=== PATIENT | male | born 1980 | race Two or more races ===

== ENCOUNTER 2016-08-09 23:13 | Emergency (ER) | payer SELFPAY ==
[~2016-08-09] VITALS: Ht 152.4 cm; Wt 79.4 kg
[2016-08-10] MEDS ORDERED: IV SET PRIMARY 1 EA INFUS.SET MC ONE (00:15)
[2016-08-10] MEDS ORDERED: ONDANSETRON HCL/PF 4 MG/2 ML VIAL ONE (00:15)
[2016-08-10] MEDS ORDERED: IV NS 0.9% 1,000 ML ONE (00:16)
[2016-08-10 00:20] LABS: BASOPHILS % (AUTO) 0.3 % (0.0-2.0); DIFF TOTAL % 100 %; EOSINOPHILS # (AUTO) 0.1 /CMM (0.0-0.7); EOSINOPHILS % (AUTO) 1.4 % (0.0-6.0); HEMATOCRIT 45 % (39-51); HEMOGLOBIN 14.8 g/dL (13.5-17.5); LYMPHOCYTES # (AUTO) 1.2 /CMM (0.8-4.8); LYMPHOCYTES % (AUTO) 13.8 % (20.0-44.0); MEAN CORPUSCULAR HEMOGLOBIN 31 PG (26.0-33.0); MEAN CORPUSCULAR HGB CONC 33 g/dl (31.0-36.0); MEAN CORPUSCULAR VOLUME 94 fL (80-96); MONOCYTES # (AUTO) 0.5 /CMM (0.1-1.30); MONOCYTES % (AUTO) 5.4 % (2.0-12.0); NEUTROPHILS % (AUTO) 79.1 % (43.0-81.0); PLATELET COUNT (AUTO) 317 /CMM (150-450); WHITE BLOOD COUNT (AUTO) 8.9 K/uL (4.3-11.0)
[2016-08-10] MEDS ORDERED: ONDANSETRON HCL/PF 4 MG/2 ML VIAL IV ONE (00:30)
[2016-08-10 00:34] LABS: ANION GAP 11 (5-14); CALCIUM, SERUM 8.9 mg/dL (8.5-10.1); CARBON DIOXIDE 28 mmol/L (21-32); CHLORIDE 109 mmol/L (98-107); CREATININE 0.9 mg/dL (0.6-1.3); GFR 95 mL/min (>60); GLUCOSE 150 mg/dL (74-106); POTASSIUM 3.6 mmol/L (3.5-5.1); SODIUM SERUM 145 mmol/L (136-145); UREA NITROGEN, BLOOD 11 mg/dL (7-18)
[2016-08-10 00:36] LABS: INR 0.93 (0.87-1.13)
[2016-08-10 00:42] LABS: ALANINE AMINOTRANSFERASE 24 U/L (12-78); ALBUMIN 3.7 g/dL (3.4-5.0); ASPARTATE AMINOTRANSFERASE 19 U/L (15-37); BILIRUBIN,DIRECT 0.1 mg/dL (0.0-0.2); BILIRUBIN,TOTAL 0.3 mg/dL (0.2-1.0); INDIRECT BILIRUBIN 0.2 mg/dL (0.0-1.1); TOTAL PROTEIN, SERUM 6.6 g/dL (6.4-8.2)
[2016-08-10 00:44] LABS: SALICYLATE 2.3 mg/dL (2.8-20.0)
[2016-08-10 00:45] LABS: ACETAMINOPHEN 0 ug/ml (10-30)
[2016-08-10] MEDS ORDERED: IV NS 0.9% 1,000 ML BAG IV ONE (01:00)
[2016-08-10] MEDS ORDERED: OLANZAPINE 5 MG/TAB.RAPDIS ONE (02:26)
[2016-08-10] MEDS ORDERED: OLANZAPINE 5 MG/TAB.RAPDIS PO ONE (02:30)
[2016-08-10 06:30] LABS: KETONES,URINE 1+ (NEGATIVE); LEUKOCYTE ESTERASE ,URINE NEGATIVE (NEGATIVE); PH,URINE 7.5 (5.0-8.0)
[2016-08-10 06:42] LABS: ADD UA MICROSCOPIC YES
[2016-08-10 06:43] LABS: PHENCYCLIDINE SCREEN,URINE NEGATIVE (NEGATIVE)
[2016-08-10 06:44] LABS: CANNABINOID, URINE POSITIVE (NEGATIVE)
[2016-08-10 06:47] LABS: ADD URINE CULTURE NO; RBC,URINE 0-2 /HPF (0-2); WBC,URINE 0-2 /HPF (0-3)
[2016-08-10 08:45] VITALS: BP 113/64
== END 2016-08-10 08:47 | disposition home or self-care (01) ==
LOC: ER 23:15
DX: F20.9 Schizophrenia, unspecified (principal); R51 Headache; R79.89 Other specified abnormal findings of blood chemistry; R79.1 Abnormal coagulation profile
CPT/HCPCS: 36415; 70450; 80048; 80076; 80305; 81001; 82140; 82962; 85025; 85730; 93005; 96361; 96374; 99285; A4606; G0480; G0481; G0482; J2405; J7030; Z7610; 81000-TC; G6038-TC; G6039-TC; G6040-TC